=== PATIENT | female | born 1975 | race Caucasian/White ===

== ENCOUNTER 2016-03-23 12:25 | Emergency (ER) | payer MEDICARE, MEDICAID ==
[2016-03-23 13:01] VITALS: TEMP 98.6; BMI 44.0
[2016-03-23 13:11] LABS: AUTOMATED BASOPHIL 0.6 % (0-2); AUTOMATED EOSINOPHIL 0.7 % (0-5); AUTOMATED LYMPH 12.8 % (17-44); AUTOMATED MONOCYTE 5.1 % (3-10); AUTOMATED NEUTROPHIL 80.8 % (45-76); MPV 8.7 fL (7.4-10.4)
[2016-03-23 13:20] LABS: BLOOD UREA NITROGEN 12 MG/DL (7-17); CALC CORRECTED 9.9 MG/DL (8.4-10.2); CALCIUM 9.8 MG/DL (8.4-10.2); CALCULATED OSMOLALITY 267 MOs/Kg (270-290); CHLORIDE 103 mEq/L (98-107); GLUCOSE 184 MG/DL (70-99); SODIUM LEVEL 136 mEq/L (137-146); TOTAL PROTEIN 8.3 G/DL (6.3-8.2)
--- NOTE | 2016-03-23 13:50 | DIRPT ---
CLINICAL DATA: Recent injury to fourth digit with redness and blistering EXAM: RIGHT HAND - COMPLETE 3+ VIEW COMPARISON: Right hand MRI March 18, 2015 FINDINGS: Frontal, oblique, and lateral views were obtained. There is marked soft tissue swelling in the subungual region of the right fourth digit. No radiopaque foreign body is seen within this area. There is moderate swelling of the proximal second, third, and fourth digits as well. There is no demonstrable fracture or dislocation. No erosive change or bony destruction. No appreciable joint space narrowing. No periostitis. No soft tissue air or calcification. IMPRESSION: Marked fourth digit subungual soft tissue swelling as well as swelling of the proximal second, third, and fourth digits. No soft tissue air or radiopaque foreign body seen. No fracture or dislocation. No erosive change or bony destruction. No appreciable arthropathic change. Electronically Signed By: Ang Chamorro III, M.D. On: 03/23/2016 13:48
[2016-03-23] MEDS ORDERED: LIDOCAINE 2% 5 ML (PRESERVATIVE FREE) VIAL INF ONE (15:56)
[2016-03-23] MEDS ORDERED: MORPHINE 4 MG/ML INJECTION IV ONE (15:56)
[2016-03-23] MEDS ORDERED: Clindamycin 900 mg/D5W 50 ml 900 MG/50 ML IVB IV ONE (15:56)
[2016-03-23] MEDS ORDERED: ONDANSETRON HCL 4 MG/2 ML VIAL IV ONE (15:56)
--- NOTE | 2016-03-23 17:24 | EDPRACDOC ---
- General Information Chief Complaint: Wound Stated Complaint: ? INFECTION RT 4TH FINGER WITH REDNESS UP ARM Time Seen by Provider: 03/23/16 15:49 Information Source: Patient Mode of Arrival:: Car Home Medications: Home Medications Epinephrine [Epipen] 0.3 mg IM .ONCE PRN 03/13/13 Nitroglycerin [Nitrostat] 0.4 mg SL .Q5MIN X 3 DOSES PRN 03/14/15 Clindamycin [Cleocin] 150 mg PO Q6 #56 cap 03/23/16 Oxycodone Immediate Release [Oxycodone Immediate Release (OxyIR)] 5 mg PO Q6H PRN #30 tab 03/23/16 Allergies/Adverse Reactions: Allergies Allergy/AdvReac Type Severity Reaction Status Date / Time morphine Allergy Nausea/Vomi Verified 03/23/16 13:01 ting - History of Present Illness Onset: 2 DAYS HPI: PT PRESENTS WITH PAIN, SWELLING AND REDNESS TO HER RIGHT 4TH DIGIT THAT EXTENDS UP HER RIGHT ARM. STATES THIS BEGAN SEVERAL DAYS AGO. DENIES FEVER, CHILLS, NAUSEA OR VOMITING Location: Reports: Extremity (RIGHT HAND) Last Tetanus: No Relevent History Of: Reports: None Prior Abscess: Reports: None Pain: Reports: Moderate Quality: Reports: Painful, Red Associated Signs & Symptoms: Reports: Proximal Streaking ED Past Medical History - History Reviewed Yes Nurses notes reviewed and agree except as marked - Patient Medical History GI/ History: Reports: Urinary Tract Infection (FREQUENT) Musculoskeletal History: Reports: Arthritis (KNEES, BACK) Psychological History: Reports: Depression, Anxiety, Bipolar Disorder. Denies: Substance Use Disorder Systemic History: Denies: Anemia Surgical History: Reports: Hysterectomy, Tonsillectomy/Adnoidectomy. Denies: Cholecystectomy - Family Medical History Reports: Diabetes (FATHER, SISTER), Cancer (MOTHER-LUNG BROTHER- SKIN CANCER), Stroke (SISTER). Denies: Hypertension, Cardiac Disorders - Social Medical History Smoking Status: Never smoker Social History: Denies: Substance Use Disorder EDM Review of Systems - Review of Systems ROS Negative Except as Marked: Yes All systems reviewed and were negative except as marked - Physical Exam Constitutional: Alert Oriented to: Time, Person, Place Last recorded Vital Signs: Last Vital Signs Temp 98.6 F 03/23/16 12:58 Pulse 90 03/23/16 16:01 Resp 18 03/23/16 16:01 BP 146/83 03/23/16 16:01 Pulse Ox 96 03/23/16 16:01 Oxygen Pulse Oxygen Saturation 96 O2 Device Oxygen Flow Rate Fraction of Inspired Oxygen ( FIO2) - HEENT Head: Normal ( normocephalic) Eye Exam: Normal (PERRL, EOMI, Sclera white) Oropharynx: Normal (Pharynx:Moist without exudate,Gums-no swelling) Nose: No Symptoms Reported (septum midline) Neck: Normal (FROM, trachea at midline) - Respiratory/Cardiovascular Respiratory: Normal - CTA (BBS clear to auscultation without adventitious sounds ) Cardiovascular: Tachycardia - GI Auscultation: Normal (NABS) Palpation: Normal (Soft,No rebound or guarding, non distended) Tenderness: Non tender Lee's Sign: Negative Rectal Exam: Deferred - Musculoskeletal Back: Normal (Non-Tender) Extremities: Normal (Normal tone, Pulses 2+ No cyanosis or edema, FROM) - Integumentary Skin: Normal, Warm, Dry Lymphatics: Normal (no adenopathy) - Neurologic Memory Impaired: Normal Motor Function: Normal (Normal tone, Pulses 2+ No cyanosis or edema, FROM) Cranial Nerve: Normal (CN II-X11 intact sensation, strength 5/5) Cerebellar: Normal Mood Description: Normal Perception: Normal ED Abscess/Mass Exam - Integumentary Skin: Normal Mass: Red, Tender, Warm, Fluctuant, Pustule, Extensive Cellulitis Lymphatics: Normal ED Procedures - Incision and Drainage Informed of risks, benefits and alternatives described.: Yes Informed Consent Signed: Verbal Site: RIGHT FOURTH DIGIT Indication: Painful Mass Anesthetic: Lidocaine Prep: Betadine Blade Size: 11 Incised Site drained: Reports: Pus Incised site was: Irrigated - Differential Diagnosis Abscess, Cellulitis, Paronychia - Results All Results Reviewed and Normal except as Highlighted below: Yes 03/23/16 13:01 03/23/16 13:01 Lab Results: WBC 16.6 xk/uL (3.8-10.8) H 03/23/16 13:01 RBC 4.65 xM/uL (4.20-5.40) 03/23/16 13:01 Hgb 13.0 g/dL (12.0-16.0) 03/23/16 13:01 Hct 39.6 % (36-47) 03/23/16 13:01 MCV 85 fL (81-99) 03/23/16 13:01 MCH 28.0 pg (27-32) 03/23/16 13:01 MCHC 32.8 g/dl (33-36) L 03/23/16 13:01 RDW 14.9 % (11.5-14.5) H 03/23/16 13:01 Plt Count 427 xk/uL (130-400) H 03/23/16 13:01 MPV 8.7 fL (7.4-10.4) 03/23/16 13:01 Neut % (Auto) 80.8 % (45-76) H 03/23/16 13:01 Lymph % (Auto) 12.8 % (17-44) L 03/23/16 13:01 Wagoner % (Auto) 5.1 % (3-10) 03/23/16 13:01 Eos % (Auto) 0.7 % (0-5) 03/23/16 13:01 Baso % (Auto) 0.6 % (0-2) 03/23/16 13:01 Absolute Neuts (auto) 13.28 xk/uL (1.7-8.2) H 03/23/16 13:01 Absolute Lymphs (auto) 1.99 xk/uL (0.65-4.75) 03/23/16 13:01 Sodium 136 mEq/L (137-146) L 03/23/16 13:01 Potassium 4.1 mEq/L (3.5-5.1) 03/23/16 13:01 Chloride 103 mEq/L (98-107) 03/23/16 13:01 Carbon Dioxide 23 mMOL/L (22-33) 03/23/16 13:01 Anion Gap 14 mEq/L (8-16) 03/23/16 13:01 BUN 12 MG/DL (7-17) 03/23/16 13:01 Creatinine 0.60 MG/DL (0.52-1.04) 03/23/16 13:01 Estimated GFR (MDRD) > 60 mL/min (>=60) 03/23/16 13:01 Glucose 184 MG/DL (70-99) H 03/23/16 13:01 Calculated Osmolality 267 MOs/Kg (270-290) L 03/23/16 13:01 Calcium 9.8 MG/DL (8.4-10.2) 03/23/16 13:01 Corrected Calcium 9.9 MG/DL (8.4-10.2) 03/23/16 13:01 Total Bilirubin 0.4 MG/DL (0.2-1.3) 03/23/16 13:01 AST 26 IU/L (14-36) 03/23/16 13:01 ALT 34 IU/L (9-52) 03/23/16 13:01 Alkaline Phosphatase 87 IU/L (38-126) 03/23/16 13:01 Total Protein 8.3 G/DL (6.3-8.2) H 03/23/16 13:01 Albumin 3.9 G/DL (3.5-5.0) 03/23/16 13:01 Lab Results 03/23/16 03/23/16 13:01 13:01 WBC 16.6 H RBC 4.65 Hgb 13.0 Hct 39.6 MCV 85 MCH 28.0 MCHC 32.8 L RDW 14.9 H Plt Count 427 H MPV 8.7 Neut % (Auto) 80.8 H Lymph % (Auto) 12.8 L Wagoner % (Auto) 5.1 Eos % (Auto) 0.7 Baso % (Auto) 0.6 Absolute Neuts (auto) 13.28 H Absolute Lymphs (auto) 1.99 Sodium 136 L Potassium 4.1 Chloride 103 Carbon Dioxide 23 Anion Gap 14 BUN 12 Creatinine 0.60 Estimated GFR (MDRD) > 60 Glucose 184 H Calculated Osmolality 267 L Calcium 9.8 Corrected Calcium 9.9 Total Bilirubin 0.4 AST 26 ALT 34 Alkaline Phosphatase 87 Total Protein 8.3 H Albumin 3.9 Decision Time to Discharge: 17:25 - Departure Disposition: Home Condition: Stable Final Diagnosis: Paronychia Qualifiers: Laterality: right Qualified Code(s): L03.011 - Cellulitis of right finger Cellulitis Qualifiers: Site of cellulitis: extremity Site of cellulitis of extremity: finger Laterality: right Qualified Code(s): L03.011 - Cellulitis of right finger Instructions: Paronychia (ED), Cellulitis (ED) Education/Counseling Given To: Patient Education/Counseling Given Regarding: Diagnosis, Treatment, Prognosis, Follow Up Referrals: Qamar White MD [Primary Care Provider] - One Week Prescriptions: Clindamycin [Cleocin] 150 mg PO Q6 #56 cap Oxycodone Immediate Release [Oxycodone Immediate Release (OxyIR)] 5 mg PO Q6H PRN #30 tab PRN Reason: Pain Additional Instructions: KEEP AREA CLEAN AND DRY. CHANGE DRESSING TWICE A DAY. RETURN TO THE ED IN TWO DAYS FOR A WOUND CHECK. RETURN SOONER IF THE AREA WORSENS OR IF YOU BEGIN TO SHOW SIGNS OR SYMPTOMS OF INFECTION SUCH NAUSEA, VOMITING, CHILLS, FEVER. TAKE ALL YOUR ANTIBIOTICS PRESCRIBED. FOLLOW UP WITH PRIMARY CARE PROVIDER NEXT WEEK. KEEP AREA ELEVATED AND YOU MAY PLACE ICE ON THE AREA FOR COMFORT.
[2016-03-23 17:52] VITALS: BP 144/87; PULSE 88
== END 2016-03-23 17:49 | disposition home or self-care (01) ==
LOC: ED 12:25
DX: L03.011 Cellulitis of right finger (principal)
CPT/HCPCS: 10060; 36415; 73130; 80053; 85025; 96365; 96375; 99283; J2001; J2270; J2405; J3490; S0077